=== PATIENT | female | born 1980 | race Caucasian/White ===

== ENCOUNTER → 2019-04-12 | Outpatient (CLI) | payer OTHER ==
--- NOTE | 2019-04-12 10:29 | Diagnostic Imaging Report ---
EXAMINATION: Cervical spine at 1002 hours. INDICATION: Neck pain. FINDINGS: AP, lateral and odontoid views were obtained. This exam is less than optimal as the lowermost cervical spine was not included on the lateral view. The lateral view does show straightening of the cervical spine. This may be secondary to muscle spasm and/or positioning. The vertebral body heights are within normal limits and the intervertebral disc spaces are well maintained. There is no fracture or acute bony abnormality evident. There is no sign of retropharyngeal edema. The lung apices are clear. IMPRESSION: 1. There is no evidence for an acute bony abnormality of the cervical spine on this somewhat limited exam. 2. If there is clinical concern regarding spinal stenosis or nerve root encroachment, then MRI would be recommended for further evaluation. Dictated by: Dictated on workstation # [id number]
== END ==
LOC: RAD FS 09:51
PROVIDERS: ATTEND Nurse Practitioner Family
DX: M54.2 Cervicalgia (principal)
CPT/HCPCS: 72040

== ENCOUNTER → 2019-08-30 | Outpatient (CLI) | payer OTHER ==
--- NOTE | 2019-08-30 12:18 | Diagnostic Imaging Report ---
INDICATION: Left foot pain worsening in severity. FINDINGS: There is no abnormal periosteal reaction. No fracture or suspicious lucencies. No articular incongruity. No bony erosion. The alignment normal. There is plantar calcaneal spurring and enthesopathy at the Achilles insertion chronic. IMPRESSION: No acute appearing abnormality. Dictated by: Dictated on workstation # [id number]
== END ==
LOC: RAD FS 11:49
PROVIDERS: ATTEND Nurse Practitioner Family
DX: M79.672 Pain in left foot (principal)
CPT/HCPCS: 73630

== ENCOUNTER 2022-01-31 04:34 | Emergency (ER) | payer BC, OTHER ==
[~2022-01-31] VITALS: Ht 165 cm; Wt 81.0 kg
--- NOTE | 2022-01-31 05:01 | ED Abdominal Pain ---
General Chief Complaint: Abdominal/GI Problems Stated Complaint: ABD PAIN Nursing Triage Note: Pt presents with abdominal pain that started yesterday evening, approx 1730. Pt states she has hx of ovarian cysts and thought it was just a rupture. She took tylenol and went to bed, and reports the pain woke her up at 0100. She took immodium at 0145 thinking she had gas. Pain has not gotten any better, she's concerned due to hx of gastric bypass surgery. History of Present Illness Date Seen by Provider: Jan 31, 2022 Time Seen by Provider: 04:51 Initial Comments 41-year-old female with PMH of Chronic router tender iron deficiency anemia/ PCOS/BPD/cholecystectomy/gastric bypass 2 years ago, is here with complaints of sudden onset of generalized abdominal pain which began in the middle of the night and woke her up from sleep. Patient has pain in the LLQ, LUQ. epigastric, and RLQ. Pain is intermittent and feels 'knife-like'. At its worst, pain is 9/10, and right now the pain is 6/10. Denies nausea and vomiting, diarrhea, constipation, dysuria, hematemesis/ melena, hematochezia, hematuria, chest pain, palpitation, fever and chills. Pt used to be on iron but could not tolerate the side effects so she has not been taking it for a long time. Allergies and Home Medications Allergies Coded Allergies: codeine (Verified Allergy, Unknown, 01/31/22) morphine (Verified Allergy, Unknown, 01/31/22) Uncoded Allergies: PENICILLIN (Allergy, Unknown, 01/31/22) Patient Home Medication List Home Medication List Reviewed: Yes Review of Systems Review of Systems Constitutional: no symptoms reported EENTM: No Symptoms Reported Respiratory: No Symptoms Reported Cardiovascular: No Symptoms Reported Gastrointestinal: Abdominal Pain Genitourinary: No Symptoms Reported Musculoskeletal: no symptoms reported Skin: no symptoms reported Psychiatric/Neurological: No Symptoms Reported Endocrine: No Symptoms Reported Hematologic/Lymphatic: No Symptoms Reported Past Rajjkcy-Vvifnw-Sefmbe Hx Past Medical History Last Menstrual Period: Jan 24, 2022 Physical Exam Vital Signs Vital Signs - First Documented 01/31/22 01/31/22 04:42 06:32 Temp 36.4 Pulse 92 Resp 18 B/P (MAP) 118/76 (90) Pulse Ox 100 O2 Delivery Room Air Capillary Refill : Less Than 3 Seconds Height/Weight/BMI Height: '" Weight: lbs. oz. kg; 29.00 BMI Method: General Appearance: WD/WN, mild distress HEENT: PERRL/EOMI Neck: full range of motion Respiratory: chest non-tender, lungs clear, normal breath sounds Cardiovascular: regular rate, rhythm, no edema Gastrointestinal: normal bowel sounds, soft, no organomegaly, tenderness (diffuse, mainly in the LUQ, LLQ, epigastric area, and RLQ) Extremities: normal range of motion Back: no CVA tenderness Neurologic/Psychiatric: alert, oriented x 3 Skin: warm/dry, pallor Lymphatic: no adenopathy Focused Exam Lactate Level 01/31/22 05:15: Lactic Acid Level 1.03 Lactic Acid Level Laboratory Tests Test 01/31/22 05:15 Lactic Acid Level 1.03 MMOL/L (0.50-2.00) Progress/Results/Core Measures Results/Orders Lab Results Laboratory Tests Test 01/31/22 04:46 01/31/22 05:15 Range/Units Urine Color YELLOW Urine Clarity CLEAR Urine pH 6.0 5-9 Urine Specific [place] 1.025 H 1.016-1.022 Urine Protein NEGATIVE NEGATIVE Urine Glucose (UA) NEGATIVE NEGATIVE Urine Ketones NEGATIVE NEGATIVE Urine Nitrite NEGATIVE NEGATIVE Urine Bilirubin NEGATIVE NEGATIVE Urine Urobilinogen 1.0 < = 1.0 MG/DL Urine Leukocyte Esterase NEGATIVE NEGATIVE Urine RBC (Auto) NEGATIVE NEGATIVE Urine RBC 0-2 /HPF Urine WBC RARE /HPF Urine Squamous Epithelial Cells 0-2 /HPF Urine Crystals N /LPF Urine Bacteria NEGATIVE /HPF Urine Casts NONE /LPF Urine Mucus NEGATIVE /LPF Urine Culture Indicated NO Urine Test NEGATIVE NEGATIVE Urine Opiates Screen NEGATIVE NEGATIVE Urine Oxycodone Screen NEGATIVE NEGATIVE Urine Methadone Screen NEGATIVE NEGATIVE Urine Propoxyphene Screen NEGATIVE NEGATIVE Urine Barbiturates Screen NEGATIVE NEGATIVE Ur Tricyclic Antidepressants Screen NEGATIVE NEGATIVE Urine Phencyclidine Screen NEGATIVE NEGATIVE Urine Amphetamines Screen NEGATIVE NEGATIVE Urine Methamphetamines Screen NEGATIVE NEGATIVE Urine Benzodiazepines Screen NEGATIVE NEGATIVE Urine Cocaine Screen NEGATIVE NEGATIVE Urine Cannabinoids Screen NEGATIVE NEGATIVE White Blood Count 3.8 L 4.3-11.0 10^3/uL Red Blood Count 3.16 L 3.80-5.11 10^6/uL Hemoglobin 6.0 *L 11.5-16.0 g/dL Hematocrit 22 L 35-52 % Mean Corpuscular Volume 71 L 80-99 fL Mean Corpuscular Hemoglobin 19 L 25-34 pg Mean Corpuscular Hemoglobin Concent 27 L 32-36 g/dL Red Cell Distribution Width 17.2 H 10.0-14.5 % Platelet Count 408 H 130-400 10^3/uL Mean Platelet Volume 10.1 9.0-12.2 fL Immature Granulocyte % (Auto) 0 % Neutrophils (%) (Auto) 45 42-75 % Lymphocytes (%) (Auto) 40 12-44 % Monocytes (%) (Auto) 13 H 0-12 % Eosinophils (%) (Auto) 2 0-10 % Basophils (%) (Auto) 1 0-10 % Neutrophils # (Auto) 1.7 L 1.8-7.8 10^3/uL Lymphocytes # (Auto) 1.5 1.0-4.0 10^3/uL Monocytes # (Auto) 0.5 0.0-1.0 10^3/uL Eosinophils # (Auto) 0.1 0.0-0.3 10^3/uL Basophils # (Auto) 0.0 0.0-0.1 10^3/uL Immature Granulocyte # (Auto) 0.0 0.0-0.1 10^3/uL Sodium Level 139 135-145 MMOL/L Potassium Level 3.9 3.6-5.0 MMOL/L Chloride Level 104 98-107 MMOL/L Carbon Dioxide Level 26 21-32 MMOL/L Anion Gap 9 5-14 MMOL/L Blood Urea Nitrogen 10 7-18 MG/DL Creatinine 0.55 L 0.60-1.30 MG/DL Estimat Glomerular Filtration Rate 117 BUN/Creatinine Ratio 18 Glucose Level 87 70-105 MG/DL Lactic Acid Level 1.03 0.50-2.00 MMOL/L Calcium Level 8.7 8.5-10.1 MG/DL Corrected Calcium 8.8 8.5-10.1 MG/DL Magnesium Level 2.0 1.6-2.4 MG/DL Total Bilirubin 0.4 0.1-1.0 MG/DL Aspartate Amino Transf (AST/SGOT) 18 5-34 U/L Alanine Aminotransferase (ALT/SGPT) 15 0-55 U/L Alkaline Phosphatase 70 40-136 U/L Troponin I < 0.30 <0.30 NG/ML Total Protein 6.2 L 6.4-8.2 GM/DL Albumin 3.9 3.2-4.5 GM/DL Lipase 18 8-78 U/L Serum Alcohol < 10 <10 MG/DL My Orders Orders - MEGAN DIXON MD Alcohol (01/31/22 05:01) Cbc With Automated Diff (01/31/22 05:01) Comprehensive Metabolic Panel (01/31/22 05:01) Drug Screen Stat (Urine) (01/31/22 05:01) Hcg,Qualitative Urine (01/31/22 05:01) Lactic Acid Analyzer (01/31/22 05:01) Lipase (01/31/22 05:01) Magnesium (01/31/22 05:01) Ua Culture If Indicated (01/31/22 05:01) Troponin I Fs (01/31/22 05:01) Ct Abdomen/Pelvis W (01/31/22 05:07) Urine Bedside (01/31/22 05:08) Ketorolac Injection (Toradol Injection) (01/31/22 05:15) Blood Culture (01/31/22 05:09) Iohexol Injection (Omnipaque 350 Mg/Ml 1 (01/31/22 05:15) Received Contrast (Hold Metformin- Contr (01/31/22 05:15) Sodium Chloride Flush (Catheter Flush Sy (01/31/22 05:15) Ns (Ivpb) (Sodium Chloride 0.9% Ivpb Bag (01/31/22 05:15) Famotidine Injection (Pepcid Injection) (01/31/22 05:15) Famotidine Injection (Pepcid Injection) (01/31/22 05:25) Pantoprazole Injection (Protonix Injecti (01/31/22 07:00) Pantoprazole Injection (Protonix Injecti (01/31/22 06:55) Medications Given in ED Current Medications Medications Dose Ordered Sig/Vish Route Start Time Stop Time Status Last Admin Dose Admin Famotidine 20 mg ONCE ONCE IVP 01/31/22 05:15 01/31/22 05:25 DC 01/31/22 05:30 20 MG Iohexol 100 ml ONCE ONCE IV 01/31/22 05:15 01/31/22 05:16 DC 01/31/22 06:06 80 ML Ketorolac Tromethamine 15 mg ONCE ONCE IVP 01/31/22 05:15 01/31/22 05:16 DC 01/31/22 05:30 15 MG Sodium Chloride 10 ml NEEDED PRN IV 01/31/22 05:15 01/31/22 06:06 10 ML Sodium Chloride 100 ml ONCE ONCE IV 01/31/22 05:15 01/31/22 05:16 DC 01/31/22 06:06 100 ML Vital Signs/I&O 01/31/22 01/31/22 04:42 06:32 Temp 36.4 Pulse 92 78 Resp 18 16 B/P (MAP) 118/76 (90) 113/78 (90) Pulse Ox 100 O2 Delivery Room Air Blood Pressure Mean: 90 Progress Progress Note : Progress Note 1. ABDOMINAL PAIN: ACUTE ON CHRONIC IRON DEFICIENCY ANEMIA - CT ABD & PELVIS: unremarkable without acute findings - CBC/ CMP: Hb is 6.0 with Hct of 22, MCV of 71 - UA/ UDS: negative, no hematuria - All other labs normal - Toradol 15mg iv STAT/Pepcid 20mg iv - Protonix bolus and drip - Pt's vitals have been stable, and since pt has chronic anemia, will discharge pt to have PCP arrange out-patient blood transfusion and iron panel. Pt will be going as a walk in to her PCP upon discharge -The patient was seen in the ED, and treated appropriately to presentation at a specific point in time. Patient is informed that there is a possibility that disease and illness can evolve and change in acuity rapidly or slowly after patient is discharged from the ER. Precautionary advice given to the patient for immediate return to ER if symptoms worsen or do not resolve, and to seek emergency care sooner rather than later. Pt also advised on the importance of PCP follow up and compliance with management and follow up plan with PCP and/or specialist, as this is part of the management plan. Pt verbally expressed understanding. Diagnostic Imaging Diagonstic Imaging: CT Plain Films/CT/US/NM/MRI: abdomen Departure Impression Primary Impression: Abdominal pain Qualified Codes: R10.84 - Generalized abdominal pain Additional Impressions: Acute on chronic anemia Iron deficiency anemia Qualified Codes: D50.9 - Iron deficiency anemia, unspecified Disposition: 01 HOME, SELF-CARE Condition: Stable Departure-Patient Inst. Referrals: [facility] (PCP) Primary Care Physician HUGO PATRICK APRN (Family) Primary Care Physician Patient Instructions: Anemia, Possibly From Low Iron, Adult ED Add. Discharge Instructions: Advised pt to see PCP MARISA for PCP to arrange out-patient blood transfusion and iron panel. Pt will be going as a walk in to her PCP upon discharge - Return to ER if symptoms worsen All discharge instructions reviewed with patient and/or family. Voiced understanding. MEGAN DIXON MD Jan 31, 2022 05:01
[2022-01-31] MEDS ORDERED: NS 100 ML (IVPB) BAG IV ONE (05:15)
[2022-01-31] MEDS ORDERED: KETOROLAC 30 MG/ML VIAL IVP ONE (05:15)
[2022-01-31] MEDS ORDERED: CATHETER FLUSH 10 ML SYR IV PRN (05:15)
[2022-01-31] MEDS ORDERED: IOHEXOL 350 MG/ML 100 ML (OMNIPAQUE 350) VIAL IV ONE (05:15)
[2022-01-31] MEDS ORDERED: FAMOTIDINE 20MG/2ML IV (PEPCID) IVP ONE (05:15)
[2022-01-31] MEDS ORDERED: HOLD METFORMIN - RECEIVED CONTRAST 20 ML VIAL IV SCH (05:15)
[2022-01-31] MEDS ORDERED: FAMOTIDINE 20MG/2ML IV (PEPCID) ONE (05:25)
[2022-01-31 05:31] LABS: BILIRUBIN,URINE NEGATIVE (NEGATIVE); CLARITY,URINE CLEAR; COLOR,URINE YELLOW; GLUCOSE, URINE (UA) NEGATIVE (NEGATIVE); HCG,QUALITATIVE URINE NEGATIVE (NEGATIVE); KETONES,URINE NEGATIVE (NEGATIVE); LEUKOCYTE ESTERASE ,URINE NEGATIVE (NEGATIVE); NITRITE,URINE NEGATIVE (NEGATIVE); PROTEIN,URINE NEGATIVE (NEGATIVE)
[2022-01-31 05:32] LABS: BASOPHILS % (AUTO) 1 % (0-10); EOSINOPHILS # (AUTO) 0.1 10^3/uL (0.0-0.3); EOSINOPHILS % (AUTO) 2 % (0-10); HEMATOCRIT 22 % (35-52); LYMPHOCYTES # (AUTO) 1.5 10^3/uL (1.0-4.0); LYMPHOCYTES % (AUTO) 40 % (12-44); MEAN CORPUSCULAR HEMOGLOBIN 19 pg (25-34); MEAN CORPUSCULAR HGB CONC 27 g/dL (32-36); MEAN CORPUSCULAR VOLUME 71 fL (80-99); MEAN PLATELET VOLUME 10.1 fL (9.0-12.2); MONOCYTES # (AUTO) 0.5 10^3/uL (0.0-1.0); MONOCYTES % (AUTO) 13 % (0-12); NEUTROPHILS # (AUTO) 1.7 10^3/uL (1.8-7.8); NEUTROPHILS % (AUTO) 45 % (42-75); PLATELET COUNT 408 10^3/uL (130-400); WHITE BLOOD COUNT 3.8 10^3/uL (4.3-11.0)
[2022-01-31 05:43] LABS: AMPHETAMINE SCREEN, URINE NEGATIVE (NEGATIVE); BACTERIA,URINE NEGATIVE /HPF; BARBITURATE SCREEN URINE NEGATIVE (NEGATIVE); BENZODIAZEPINES SCREEN URINE NEGATIVE (NEGATIVE); CANNABINOID SCREEN, URINE NEGATIVE (NEGATIVE); COCAINE SCREEN URINE NEGATIVE (NEGATIVE); METHADONE STAT NEGATIVE (NEGATIVE); OPIATE SCREEN URINE NEGATIVE (NEGATIVE); OXYCODONE STAT NEGATIVE (NEGATIVE); PROPOXYPHENE STAT NEGATIVE (NEGATIVE); RBC,URINE 0-2 /HPF; SQUAMOUS EPITHELIAL CELL,UR 0-2 /HPF; TRICYCLIC ANTIDEPRESSANTS SCRE NEGATIVE (NEGATIVE); WBC,URINE RARE /HPF
[2022-01-31 05:53] LABS: ALANINE AMINOTRANSFERASE 15 U/L (0-55); ALKALINE PHOSPHATASE 70 U/L (40-136); BILIRUBIN,TOTAL 0.4 MG/DL (0.1-1.0); BUN/CREATININE RATIO 18; CALCIUM 8.7 MG/DL (8.5-10.1); CARBON DIOXIDE 26 MMOL/L (21-32); CHLORIDE 104 MMOL/L (98-107); CREATININE SERUM 0.55 MG/DL (0.60-1.30); GFR ESTIMATED 117; GLUCOSE 87 MG/DL (70-105); POTASSIUM 3.9 MMOL/L (3.6-5.0); SODIUM 139 MMOL/L (135-145)
[2022-01-31 05:54] LABS: ALBUMIN 3.9 GM/DL (3.2-4.5); LIPASE 18 U/L (8-78); TOTAL PROTEIN 6.2 GM/DL (6.4-8.2)
--- NOTE | 2022-01-31 06:45 | Diagnostic Imaging Report ---
PROCEDURE: CT abdomen and pelvis with contrast. TECHNIQUE: Multiple contiguous axial images were obtained through the abdomen and pelvis after administration of intravenous contrast. Auto Exposure Controls were utilized during the CT exam to meet ALARA standards for radiation dose reduction. All CT scans use one or more of the following dose optimizing techniques: automated exposure control, MA and/or KvP adjustment based on patient size and exam type or iterative reconstruction. INDICATION: 41-year-old female presents with generalized abdominal pain. There is a previous history of cholecystectomy COMPARISONS: None FINDINGS: Lung bases are clear. Cardiac contour is normal. Liver shows uniform attenuation. Gallbladder is surgically absent. Spleen is normal. There is a previous gastric bypass. Pancreas shows sharp margins. Adrenals are normal. Kidneys appear normal in size, position and contour. There are symmetrical perfusion of contrast. There is no hydronephrosis or hydroureter. Both ureters are seen through their coarse and appear unremarkable. Bladder is underfilled. Uterus and adnexa are also grossly normal. Nonopacified loops of small bowel show a few fluid-filled loops but overall grossly unremarkable. Large bowel contains a moderate amount of fecal load. There is an anterior fascial defect along the medial aspect of the left rectus sheath suggesting small hernia. There is enteric anastomosis within a segment of small bowel in the left upper quadrant with some irregular mucosal thickening near the anastomosis. Visualized vasculature shows normal caliber of aorta, iliac and femoral arteries with normal origin of the visceral arteries. Bone windows show no overall gross abnormalities. IMPRESSION: 1. Previous gastric bypass. 2. There is previous enteric anastomosis in the small bowel left upper quadrant. There is however luminal irregularity with irregular mucosal thickening near the anastomosis. There is no history of malignancy reported however correlation with small bowel follow-through would be of further value. 3. Small fascial defect along the medial aspect left rectus sheath consistent with a small hernia. 4. Surgical absence the gallbladder. 5. No evidence of appendicitis. 6. A moderate amount of fecal load in the colon. Additional nonemergent findings as described above. Dictated by: Dictated on workstation # [id number]
[2022-01-31] MEDS ORDERED: PANTOPRAZOLE 40 MG (PROTONIX) VIAL IV STA (06:55)
[2022-01-31] MEDS ORDERED: PANTOPRAZOLE 40 MG (PROTONIX) VIAL IV ONE (07:00)
[2022-01-31 07:25] VITALS: BP 114/69
== END 2022-01-31 07:26 | disposition home or self-care (01) ==
LOC: EDUNIT# 04:34 → ER FS 04:36
DX: D50.9 Iron deficiency anemia, unspecified (principal); R10.84 Generalized abdominal pain; Z90.49 Acquired absence of other specified parts of digestive tract; Z98.84 Bariatric surgery status; Z28.310 Unvaccinated for COVID-19
CPT/HCPCS: 36415; 74177; 80053; 80306; 81000; 83605; 83690; 83735; 84484; 84703 ×2; 85025; 87040; 99284; G0480; 80320

== ENCOUNTER 2022-02-11 13:59 | Outpatient (RCR) | payer BC ==
[2022-02-03 10:59] LABS: BASOPHILS % (AUTO) 1 % (0-10); EOSINOPHILS # (AUTO) 0.1 10^3/uL (0.0-0.3); EOSINOPHILS % (AUTO) 2 % (0-10); HEMATOCRIT 24 % (35-52); LYMPHOCYTES # (AUTO) 1.5 10^3/uL (1.0-4.0); LYMPHOCYTES % (AUTO) 47 % (12-44); MEAN CORPUSCULAR HEMOGLOBIN 19 pg (25-34); MEAN CORPUSCULAR HGB CONC 27 g/dL (32-36); MEAN CORPUSCULAR VOLUME 72 fL (80-99); MEAN PLATELET VOLUME 9.8 fL (9.0-12.2); MONOCYTES # (AUTO) 0.3 10^3/uL (0.0-1.0); MONOCYTES % (AUTO) 9 % (0-12); NEUTROPHILS # (AUTO) 1.3 10^3/uL (1.8-7.8); NEUTROPHILS % (AUTO) 42 % (42-75); PLATELET COUNT 383 10^3/uL (130-400); WHITE BLOOD COUNT 3.2 10^3/uL (4.3-11.0)
[2022-02-03 11:00] LABS: HEMOGLOBIN 6.5 g/dL (11.5-16.0)
[~2022-02-11 13:59] MED LIST: FERRIC CARBOXYMALTOSE INJ 750 MG in NS (IVPB) 250 ML IV SCH
== END 2022-03-03 | disposition home or self-care (01) ==
LOC: ONC 13:59
PROVIDERS: ATTEND Internal Medicine
DX: D50.9 Iron deficiency anemia, unspecified (principal); N92.0 Excessive and frequent menstruation with regular cycle; Z98.84 Bariatric surgery status
CPT/HCPCS: 82525; 82607; 82728; 83540; 83550; 83921; 85025; G0463; 36415; 96365; 99204

== ENCOUNTER → 2022-04-09 | Outpatient (CLI) | payer BC ==
[2022-04-09 10:24] LABS: BASOPHILS % (AUTO) 1 % (0-10); EOSINOPHILS # (AUTO) 0.1 10^3/uL (0.0-0.3); EOSINOPHILS % (AUTO) 2 % (0-10); HEMATOCRIT 38 % (35-52); HEMOGLOBIN 12.7 g/dL (11.5-16.0); LYMPHOCYTES % (AUTO) 43 % (12-44); MEAN CORPUSCULAR HEMOGLOBIN 30 pg (25-34); MEAN CORPUSCULAR HGB CONC 33 g/dL (32-36); MEAN CORPUSCULAR VOLUME 90 fL (80-99); MEAN PLATELET VOLUME 9.4 fL (9.0-12.2); MONOCYTES # (AUTO) 0.3 10^3/uL (0.0-1.0); MONOCYTES % (AUTO) 6 % (0-12); NEUTROPHILS # (AUTO) 2.3 10^3/uL (1.8-7.8); NEUTROPHILS % (AUTO) 49 % (42-75); PLATELET COUNT 333 10^3/uL (130-400); WHITE BLOOD COUNT 4.7 10^3/uL (4.3-11.0)
== END ==
LOC: LAB FS 10:10
PROVIDERS: ATTEND Internal Medicine
DX: D50.9 Iron deficiency anemia, unspecified (principal)
CPT/HCPCS: 36415; 85025

== ENCOUNTER 2022-05-12 10:13 | Outpatient (RCR) | payer BC ==
[2022-05-12 10:48] LABS: BASOPHILS % (AUTO) 0 % (0-10); EOSINOPHILS % (AUTO) 1 % (0-10); HEMATOCRIT 37 % (35-52); LYMPHOCYTES # (AUTO) 1.6 10^3/uL (1.0-4.0); LYMPHOCYTES % (AUTO) 33 % (12-44); MEAN CORPUSCULAR HEMOGLOBIN 30 pg (25-34); MEAN CORPUSCULAR HGB CONC 32 g/dL (32-36); MEAN CORPUSCULAR VOLUME 92 fL (80-99); MEAN PLATELET VOLUME 9.4 fL (9.0-12.2); MONOCYTES # (AUTO) 0.4 10^3/uL (0.0-1.0); MONOCYTES % (AUTO) 9 % (0-12); NEUTROPHILS # (AUTO) 2.6 10^3/uL (1.8-7.8); NEUTROPHILS % (AUTO) 56 % (42-75); PLATELET COUNT 378 10^3/uL (130-400); WHITE BLOOD COUNT 4.6 10^3/uL (4.3-11.0)
== END 2022-06-03 | disposition home or self-care (01) ==
LOC: ONC 10:13
PROVIDERS: ATTEND Internal Medicine
DX: D50.9 Iron deficiency anemia, unspecified (principal); N92.0 Excessive and frequent menstruation with regular cycle; Z98.84 Bariatric surgery status
CPT/HCPCS: 82728; 83540; 83550; 85025; G0463; 36415; 99213

== ENCOUNTER → 2022-08-20 | Outpatient (CLI) | payer BC ==
[2022-08-20 10:30] LABS: BASOPHILS % (AUTO) 1 % (0-10); EOSINOPHILS % (AUTO) 1 % (0-10); HEMATOCRIT 32 % (35-52); HEMOGLOBIN 9.7 g/dL (11.5-16.0); LYMPHOCYTES # (AUTO) 1.5 10^3/uL (1.0-4.0); LYMPHOCYTES % (AUTO) 35 % (12-44); MEAN CORPUSCULAR HEMOGLOBIN 26 pg (25-34); MEAN CORPUSCULAR HGB CONC 31 g/dL (32-36); MEAN CORPUSCULAR VOLUME 83 fL (80-99); MEAN PLATELET VOLUME 9.7 fL (9.0-12.2); MONOCYTES # (AUTO) 0.3 10^3/uL (0.0-1.0); MONOCYTES % (AUTO) 8 % (0-12); NEUTROPHILS # (AUTO) 2.5 10^3/uL (1.8-7.8); NEUTROPHILS % (AUTO) 56 % (42-75); PLATELET COUNT 344 10^3/uL (130-400); WHITE BLOOD COUNT 4.4 10^3/uL (4.3-11.0)
== END ==
LOC: RAD FS 09:54
PROVIDERS: ATTEND Internal Medicine Hematology & Oncology
DX: D50.9 Iron deficiency anemia, unspecified (principal)
CPT/HCPCS: 36415; 82728; 83540; 83550; 85025

== ENCOUNTER 2022-08-27 09:52 | Outpatient (RCR) | payer BC | END 2022-08-31 | disposition home or self-care (01) | LOC: ONC 09:52 | PROVIDERS: ATTEND Internal Medicine Hematology & Oncology | DX: D50.9 Iron deficiency anemia, unspecified (principal); N92.0 Excessive and frequent menstruation with regular cycle; Z98.84 Bariatric surgery status ==

== ENCOUNTER 2022-09-08 08:20 | Outpatient (RCR) | payer BC ==
[2022-09-08] MEDS ORDERED: NS (IVPB) 250 ML ONE (09:02)
== END 2022-10-01 | disposition home or self-care (01) ==
LOC: ONC 08:20
PROVIDERS: ATTEND Internal Medicine Hematology & Oncology
DX: D50.9 Iron deficiency anemia, unspecified (principal)
CPT/HCPCS: 36415; 96365

== ENCOUNTER → 2022-12-12 | Outpatient (CLI) | payer BC ==
[2022-12-12 07:46] LABS: BASOPHILS % (AUTO) 0 % (0-10); EOSINOPHILS % (AUTO) 1 % (0-10); HEMATOCRIT 40 % (35-52); HEMOGLOBIN 13.4 g/dL (11.5-16.0); LYMPHOCYTES # (AUTO) 1.7 X 10^3 (1.0-4.0); LYMPHOCYTES % (AUTO) 39 % (12-44); MEAN CORPUSCULAR HEMOGLOBIN 33 pg (25-34); MEAN CORPUSCULAR HGB CONC 34 g/dL (32-36); MEAN CORPUSCULAR VOLUME 98 fL (80-99); MEAN PLATELET VOLUME 9.9 fL (9.0-12.2); MONOCYTES % (AUTO) 7 % (0-12); NEUTROPHILS # (AUTO) 2.3 X 10^3 (1.8-7.8); NEUTROPHILS % (AUTO) 53 % (42-75); PLATELET COUNT 344 10^3/uL (130-400); WHITE BLOOD COUNT 4.4 10^3/uL (4.3-11.0)
[2022-12-12 07:47] LABS: EOSINOPHILS # (AUTO) 0.1 10^3/uL (0.0-0.3); MONOCYTES # (AUTO) 0.3 X 10^3 (0.0-1.0)
== END ==
LOC: LAB FS 07:13
PROVIDERS: ATTEND Internal Medicine Hematology & Oncology
DX: D50.9 Iron deficiency anemia, unspecified (principal)
CPT/HCPCS: 36415; 82728; 83540; 83550; 85025

== ENCOUNTER → 2023-01-01 | Outpatient (RCR) | payer BC ==
[2022-12-25 15:55] VITALS: BP 124/80
[2022-12-25] MEDS: FERRIC CARBOXYMALTOSE INJ 750 MG in NS (IVPB) 250 ML 250 ML IV SCH (16:04)
[~2023-01-01] VITALS: Ht 165.1 cm; Wt 85.5 kg
[~2023-01-01] MED LIST changes: -FERRIC CARBOXYMALTOSE INJ 750 MG in NS (IVPB) 250 ML IV SCH; +NS IV 500 ML 500 ML IV SCH
[2023-01-01 10:40] VITALS: BP 133/84
[2023-01-01] MEDS: FERRIC CARBOXYMALTOSE INJ 750 MG in NS (IVPB) 250 ML 250 ML IV SCH (10:45)
== END | disposition home or self-care (01) ==
LOC: ONC 12-09 11:26
PROVIDERS: ATTEND Internal Medicine Hematology & Oncology
DX: D50.9 Iron deficiency anemia, unspecified (principal)
CPT/HCPCS: 36415; 96365; 99214

== ENCOUNTER → 2023-03-04 | Outpatient (CLI) | payer BC ==
[2023-03-04 15:53] LABS: BASOPHILS % (AUTO) 1 % (0-10); EOSINOPHILS # (AUTO) 0.1 10^3/uL (0.0-0.3); EOSINOPHILS % (AUTO) 1 % (0-10); HEMATOCRIT 43 % (35-52); LYMPHOCYTES % (AUTO) 33 % (12-44); MEAN CORPUSCULAR HEMOGLOBIN 34 pg (25-34); MEAN CORPUSCULAR HGB CONC 35 g/dL (32-36); MEAN CORPUSCULAR VOLUME 97 fL (80-99); MEAN PLATELET VOLUME 9.6 fL (9.0-12.2); MONOCYTES # (AUTO) 0.4 10^3/uL (0.0-1.0); MONOCYTES % (AUTO) 7 % (0-12); NEUTROPHILS # (AUTO) 3.3 10^3/uL (1.8-7.8); NEUTROPHILS % (AUTO) 57 % (42-75); PLATELET COUNT 318 10^3/uL (130-400); WHITE BLOOD COUNT 5.8 10^3/uL (4.3-11.0)
== END ==
LOC: LAB FS 15:08
PROVIDERS: ATTEND Internal Medicine Hematology & Oncology
DX: D50.9 Iron deficiency anemia, unspecified (principal)
CPT/HCPCS: 36415; 83540; 83550; 85025

== ENCOUNTER 2023-03-11 09:14 | Outpatient (RCR) | payer BC ==
[2023-01-01 10:40] VITALS: BP 133/84
== END 2023-04-02 | disposition home or self-care (01) ==
LOC: ONC 09:14
PROVIDERS: ATTEND Internal Medicine Hematology & Oncology
DX: D50.9 Iron deficiency anemia, unspecified (principal)
CPT/HCPCS: 99214